=== PATIENT | female | born 1960 | race African-American/Black ===

== ENCOUNTER 2016-11-03 16:45 | Inpatient (IN) | payer OTHER ==
[~2016-11-03] VITALS: Ht 157.5 cm; Wt 99.0 kg
[~2016-11-03 16:45] MED LIST: CARDIZEM LA240 MG PO; DIOVAN160 MG PO; LIPITOR40 MG PO; MECLIZINE HCL12.5 M1 PO
[2016-11-03 17:14] LABS: EOSINOPHIL (%) 0.3 % (0-5); HEMATOCRIT 41.9 % (36.0-46.0); IMMATURE GRANULOCYTE (%) 0.2 % (0.0-0.7); INSTRUMENT ABS NEUTROPHIL CT 4.6 K/uL; LYMPHOCYTE COUNT 1.1 K/uL (1.0-2.8); MCH 28.6 PG (29.0-34.0); MCHC 29.8 G/DL (30.0-36.0); MCV 95.9 FL (83-99); MEAN PLAT.VOLUME 10.2 uM^3 (9.5-12.4); MONOCYTE (%) 5.9 % (3-12); MONOCYTE COUNT 0.4 K/uL (0-0.8); NEUTROPHIL (%) 74.9 % (45-76); NEUTROPHIL COUNT 4.6 K/uL (1.8-6.4); PLATELET COUNT 176 K/uL (156-360); RBC DIS.WIDTH-CV 13.8 % (11.8-14.6); RED BLOOD COUNT 4.37 M/uL (3.80-5.20); WHITE BLOOD COUNT 6.1 K/uL (4.1-10.2)
[2016-11-03 17:16] LABS: VENOUS PCO2 77 mm Hg (41-51)
[2016-11-03 17:17] LABS: CARBON DIOXIDE (BICARBONATE) > 40.0 MEQ/L (20-31)
[2016-11-03 17:25] LABS: CHLORIDE 97 mEq/L (99-109); POTASSIUM 3.2 mEq/L (3.7-5.4); SODIUM 142 mEq/L (136-147)
[2016-11-03 17:27] LABS: GLUCOSE 109 mg/dL (70-99)
[2016-11-03 17:28] LABS: ANION GAP 13 MEQ/L (2-14)
[2016-11-03 17:31] LABS: GFR ESTIMATE (CALCULATED) > 59 mL/min/
[2016-11-03 17:32] LABS: UREA NITROGEN (BUN) 12 mg/dL (9-23)
[2016-11-03 17:35] LABS: TROP-I INTERPRETATION NEGATIVE; TROPONIN-I 0.11 ng/mL (0.0-0.30)
[2016-11-03] MEDS ORDERED: AMLODIPINE BESYL5 MG PO (18:16)
[2016-11-03] MEDS ORDERED: VITAMIN D22000 UNIT PO (18:17)
[2016-11-03] MEDS ORDERED: ADVAIR 100/501 DISK IH (18:17)
[2016-11-03] MEDS ORDERED: CARVEDILOL6.25 MG PO (18:17)
[2016-11-03] MEDS ORDERED: LISINOPRIL20 MG PO (18:18)
[2016-11-03] MEDS ORDERED: VENTOLIN HFA18 GM IH (18:18)
[2016-11-03] MEDS ORDERED: FUROSEMIDE40 MG PO (18:18)
[2016-11-03] MEDS ORDERED: NEURONTIN300 MG PO (18:18)
[2016-11-03] MEDS ORDERED: LO-DOSE ASPIRIN81 M2 PO (18:18)
[2016-11-03 23:09] LABS: INFLUENZA A VIRAL ANTIGEN NEGATIVE; INFLUENZA B VIRAL ANTIGEN NEGATIVE
[2016-11-04 00:24] VITALS: BP 125/75
[2016-11-04 05:16] VITALS: BP 113/78
[2016-11-04 05:39] LABS: EOSINOPHIL (%) 0 % (0-5); HEMATOCRIT 41.5 % (36.0-46.0); IMMATURE GRANULOCYTE (%) 0.6 % (0.0-0.7); INSTRUMENT ABS NEUTROPHIL CT 5.9 K/uL; LYMPHOCYTE COUNT 0.8 K/uL (1.0-2.8); MCH 28.6 PG (29.0-34.0); MCHC 28.9 G/DL (30.0-36.0); MEAN PLAT.VOLUME 10.6 uM^3 (9.5-12.4); MONOCYTE COUNT 0.1 K/uL (0-0.8); NEUTROPHIL (%) 85.3 % (45-76); NEUTROPHIL COUNT 5.9 K/uL (1.8-6.4); NRBC (%) 0.4 /100 WBC (0-0); PLATELET COUNT 166 K/uL (156-360); RBC DIS.WIDTH-CV 13.5 % (11.8-14.6); RBC DIS.WIDTH-SD 49.4 % (39-53); RED BLOOD COUNT 4.19 M/uL (3.80-5.20); WHITE BLOOD COUNT 6.9 K/uL (4.1-10.2)
[2016-11-04 06:02] LABS: ALKALINE PHOSPHATASE 67 IU/L (3-129); ANION GAP 8 MEQ/L (2-14); CHLORIDE 93 MEQ/L (99-109); GFR ESTIMATE (CALCULATED) > 59 mL/min/; POTASSIUM 3.7 MEQ/L (3.7-5.4); SAMPLE HEMOLYSIS CHECK 0; SAMPLE ICTERIC CHECK 0; SAMPLE LIPEMIA CHECK 0; SODIUM 139 MEQ/L (136-147); TOTAL BILIRUBIN 0.5 MG/DL (0.0-1.0); UREA NITROGEN (BUN) 16 mg/dL (9-23)
[2016-11-04 06:03] LABS: GLUCOSE 245 mg/dL (70-99)
[2016-11-04 07:20] VITALS: BP 124/68
[2016-11-04 12:25] VITALS: BP 115/64
[2016-11-04 17:36] VITALS: BP 115/71
[2016-11-04 19:37] VITALS: BP 111/62
[2016-11-05] VITALS (7 sets, daily range): BP systolic 109–133; BP diastolic 57–94
[2016-11-06] VITALS (9 sets, daily range): BP systolic 96–126; BP diastolic 51–78
[2016-11-06 01:16] LABS: ADD MIUA? NO; BILIRUBIN NEGATIVE; BLOOD NEGATIVE; COLOR STRAW ((YELLOW)); GLUCOSE (STRIP) NEGATIVE; KETONES NEGATIVE; LEUKOCYTES NEGATIVE; NITRITE NEGATIVE; PROTEIN (STRIP) NEGATIVE; SPECIFIC GRAVITY 1.006 (1.000-1.030); UCUL ADDED? NO; UROBILINOGEN 0.2 MG/DL (0.2-1.0)
[2016-11-06 10:35] LABS: INTERNAL CONTROL VALID? YES
[2016-11-07 03:30] VITALS: BP 114/69
[2016-11-07 07:35] VITALS: BP 122/76
[2016-11-07 10:55] VITALS: BP 114/70
[2016-11-07 15:29] VITALS: BP 124/74
[2016-11-07 19:15] VITALS: BP 132/77
[2016-11-07 23:20] VITALS: BP 132/79
[2016-11-08 03:10] VITALS: BP 119/76
[2016-11-08 07:42] VITALS: BP 117/68
[2016-11-08 15:46] VITALS: BP 121/69
[2016-11-09 00:15] VITALS: BP 103/65
[2016-11-09 06:10] VITALS: BP 116/64
[2016-11-09 08:00] VITALS: BP 109/71
[2016-11-09 12:00] VITALS: BP 107/61
[2016-11-09 15:50] VITALS: BP 102/57
[2016-11-09] MEDS ORDERED: PREDNISONE20 MG PO (17:41)
[2016-11-09] MEDS ORDERED: CEFDINIR300 MG PO ×2 (17:42→17:56)
[2016-11-09] MEDS ORDERED: SPIRIVA1 INHALATI IH (17:44)
[2016-11-09] MEDS ORDERED: PANTOPRAZOLE SO40 MG PO (17:45)
[2016-11-09] MEDS ORDERED: DOXYCYCLINE HY100 M3 PO (17:45)
[2016-11-09] MEDS ORDERED: LISINOPRIL20 MG PO (17:45)
[2016-11-09] MEDS ORDERED: AMLODIPINE BESYL5 MG PO (17:45)
[2016-11-09] MEDS ORDERED: PREDNISONE10 MG PO (17:56)
== END 2016-11-09 19:45 | disposition home or self-care (01) | DRG 195 ==
LOC: EME 16:45 → EDOF 19:16 → 4EAST 19:16 → 4SOUTH 19:16 → 4EAST 23:42 → 4SOUTH 11-06 15:01
PROVIDERS: Emergency Medicine; Internal Medicine; Internal Medicine Pulmonary Disease
DX: J18.9 Pneumonia, unspecified organism (principal); I50.9 Heart failure, unspecified; E87.6 Hypokalemia; I10 Essential (primary) hypertension; E78.5 Hyperlipidemia, unspecified; E66.9 Obesity, unspecified; Z68.39 Body mass index [BMI] 39.0-39.9, adult; G47.30 Sleep apnea, unspecified
CPT/HCPCS: 71010; 71020; 71260; 80048; 80053; 81003; 82803; 82948; 83880; 84484; 85025; 87040; 87070; 87205; 87449; 87502; 93005; 93306; 94640; 94640 76; 94799; 99202; 99281; 99285; J0456; J0692; J0696; J1650; J1940; J2930; J7050; J7512; S0039

== ENCOUNTER → 2016-11-22 | Outpatient (CLI) | payer OTHER ==
[~2016-11-22] MED LIST changes: +ADVAIR 100/501 DISK IH; +AMLODIPINE BESYL5 MG PO; +CARVEDILOL6.25 MG PO; +CEFDINIR300 MG PO; +DOXYCYCLINE HY100 M3 PO; +FUROSEMIDE40 MG PO; +LISINOPRIL20 MG PO; +LO-DOSE ASPIRIN81 M2 PO; +NEURONTIN300 MG PO; +PANTOPRAZOLE SO40 MG PO; +PREDNISONE10 MG PO; +PREDNISONE20 MG PO; +SPIRIVA1 INHALATI IH; +VENTOLIN HFA18 GM IH; +VITAMIN D22000 UNIT PO
== END | disposition home or self-care (01) ==
LOC: NUC 11-21 14:00
DX: Z86.711 Personal history of pulmonary embolism (principal)
CPT/HCPCS: 78582; A9540; A9567

== ENCOUNTER 2017-08-22 21:43 | Observation (INO) | payer BC ==
[~2017-08-22] VITALS: Ht 157.5 cm; Wt 109.4 kg
[2017-08-22] MEDS ORDERED: NEURONTIN100 MG PO (21:55)
[2017-08-22 22:37] LABS: HEMATOCRIT 42.8 % (36.0-46.0); HEMOGLOBIN 13.3 G/DL (11.9-15.5); MCH 29.8 PG (29.0-34.0); MCHC 31.1 G/DL (30.0-36.0); PLATELET COUNT 253 K/uL (156-360); RBC DIS.WIDTH-CV 12.5 % (11.8-14.6); RED BLOOD COUNT 4.46 M/uL (3.80-5.20); WHITE BLOOD COUNT 8.7 K/uL (4.1-10.2)
[2017-08-22 22:46] LABS: CHLORIDE 101 mEq/L (99-109); POTASSIUM 3.8 mEq/L (3.7-5.4); SODIUM 140 mEq/L (136-147)
[2017-08-22 22:47] LABS: GLUCOSE 124 mg/dL (70-99)
[2017-08-22 22:51] LABS: CREATININE 1.1 mg/dL (0.6-1.3); GFR ESTIMATE (CALCULATED) > 59 mL/min/
[2017-08-22 22:52] LABS: UREA NITROGEN (BUN) 22 mg/dL (9-23)
[2017-08-22 23:00] LABS: TROP-I INTERPRETATION NEGATIVE; TROPONIN-I 0.07 ng/mL (0.0-0.30)
[2017-08-22] MEDS ORDERED: AMLODIPINE BESY10 MG PO (23:29)
[2017-08-22] MEDS ORDERED: TRAMADOL HCL50 MG PO (23:30)
[2017-08-22] MEDS ORDERED: CYCLOBENZAPRINE10 MG PO (23:31)
[2017-08-22] MEDS ORDERED: ATORVASTATIN CA80 MG PO (23:32)
[2017-08-22] MEDS ORDERED: LISINOPRIL40 MG PO (23:34)
[2017-08-22] MEDS ORDERED: MONTELUKAST SOD10 MG PO (23:35)
[2017-08-22] MEDS ORDERED: ASPIR-LOW81 MG PO (23:41)
[2017-08-22] MEDS ORDERED: ALENDRONATE SOD70 MG PO (23:41)
[2017-08-22] MEDS ORDERED: SPIRONOLACTONE25 MG PO (23:51)
[2017-08-23 01:13] VITALS: BP 120/65
[2017-08-23 03:44] VITALS: BP 120/58
[2017-08-23 04:55] LABS: TROP-I INTERPRETATION NEGATIVE; TROPONIN-I 0.05 ng/mL (0.0-0.30)
[2017-08-23 07:03] VITALS: BP 89/52
[2017-08-23 11:22] VITALS: BP 119/62
[2017-08-23 12:35] LABS: TROP-I INTERPRETATION NEGATIVE; TROPONIN-I 0.05 ng/mL (0.0-0.30)
[2017-08-23 16:12] VITALS: BP 127/87
[2017-08-23 20:00] VITALS: BP 106/59
[2017-08-24 00:45] VITALS: BP 100/58
[2017-08-24 03:38] VITALS: BP 128/56
[2017-08-24 07:45] VITALS: BP 136/82
[2017-08-24] MEDS ORDERED: ATORVASTATIN CA80 MG PO (12:25)
[2017-08-24] MEDS ORDERED: LISINOPRIL20 MG PO (12:26)
[2017-08-24] MEDS ORDERED: SPIRONOLACTONE25 MG PO (12:27)
[2017-08-24] MEDS ORDERED: FUROSEMIDE20 MG PO (12:27)
[2017-08-24 12:39] VITALS: BP 144/88
== END 2017-08-24 16:02 | disposition home or self-care (01) ==
LOC: EME → EDBD 21:43 → EME 21:43 → EDOF 23:15 → 5WEST 23:15 → ENRESERV 23:35 → 5WEST 08-23 00:52
PROVIDERS: Emergency Medicine; Family Medicine
DX: I95.9 Hypotension, unspecified (principal); R09.02 Hypoxemia; E66.01 Morbid (severe) obesity due to excess calories; I42.9 Cardiomyopathy, unspecified; E78.5 Hyperlipidemia, unspecified; J45.909 Unspecified asthma, uncomplicated; G47.33 Obstructive sleep apnea (adult) (pediatric); R42 Dizziness and giddiness; I11.0 Hypertensive heart disease with heart failure; I50.9 Heart failure, unspecified; I27.20 Pulmonary hypertension, unspecified; R61 Generalized hyperhidrosis; Z68.42 Body mass index [BMI] 45.0-49.9, adult; Z79.82 Long term (current) use of aspirin; Z88.1 Allergy status to other antibiotic agents; Z88.5 Allergy status to narcotic agent
CPT/HCPCS: 71046; 80048; 81003; 84484; 85027; 93005; 99281; 99285; G0378; J7030